=== PATIENT | male | born 1935 | race Caucasian/White ===

== ENCOUNTER 2019-01-15 14:08 | Inpatient (IN) | payer MEDICARE, OTHER ==
--- NOTE | 2019-01-15 14:20 | ED ---
Neurological HPI - HPI Summary HPI Summary: 83 year old M brought in by EMS from [facility] to [facility] complains of disorientation, confusion, weakness, and mild headache since this morning. Patient states that yesterday evening, he smoked a pipe and went to bed at 19: 00 and was fine. Patient states that when he woke up at 00:00 today to use the bathroom, he noticed that he felt disoriented. Patient states he had no difficulty ambulating and went back to sleep. Patient states that he woke up at 06:30 today with a mild headache and dark vision which he didn't think much of so did his chores. He states he left his house at 09:00 to go to an appointment , felt disoriented and confused and was unsure where he was as he was driving his car. Patient states that as he was driving, he noticed that he was unable to see cars coming towards him until the cars were very close. Patient states he also wasn't able to see in his peripheral visual garay, described as having tunnel vision. Patient decided to go to [facility] to be evaluated. Patient states his visual changes have since resolved. Symptoms aggravated by nothing. Symptoms alleviated by nothing. Hx urinary incontinence with which he usually does not get strong sense to urinate. - History of Current Complaint Stated Complaint: STROKE PER NURSE Hx Obtained From: Patient Onset/Duration: Started hours ago, Still Present Timing: Constant Aggravating: Nothing Alleviating: Nothing - Allergy/Home Medications Allergies/Adverse Reactions: Allergies Allergy/AdvReac Type Severity Reaction Status Date / Time No Known Allergies Allergy Verified 01/15/19 14:17 PMH/Surg Hx/FS Hx/Imm Hx Cardiovascular History: Reports: Hx Atrial Fibrillation Sensory History: Reports: Hx Hearing Aid - BILATERAL Denies: Hx Contacts or Glasses Opthamlomology History: Denies: Hx Contacts or Glasses - Surgical History Surgery Procedure, Year, and Place: LEFT TOTAL HIP- 03/17- [facility] Hx Anesthesia Reactions: No - Family History Known Family History: Positive: Other - cataracts, arthritis, cancer - Social History Alcohol Use: Daily Alcohol Amount: A LITTLE WINE WITH MEALS Substance Use Type: Reports: None Hx Tobacco Use: Yes Smoking Status (MU): Light Every Day Tobacco Smoker Amount Used/How Often: 1-2 PIPES DAILY; 1-2 CIGARS DAILY- DOESN'T INHALE -X 5 YEARS Review of Systems Positive: Other - visual changes Neurological: Other - disorientation, confusion Positive: Headache, Weakness All Other Systems Reviewed And Are Negative: Yes Physical Exam - Summary Physical Exam Summary: Appearance: The patient is well-nourished in no acute distress and in no acute pain. Skin: The skin is warm and dry, and skin color reflects adequate perfusion. HEENT: The head is normocephalic and atraumatic. The pupils are equal and reactive. The conjunctivae are clear and without drainage. Nares are patent and without drainage. Mouth reveals moist mucous membranes, and the throat is without erythema and exudate. The external ears are intact. The ear canals are patent and without drainage. The tympanic membranes are intact. Neck: The neck is supple with full range of motion and non-tender. There are no carotid bruits. There is no neck vein distension. Respiratory: Chest is non-tender. Lungs are clear to auscultation and breath sounds are symmetrical and equal. Cardiovascular: Heart is regular rate and rhythm. There is no murmur or rub auscultated. There is no peripheral edema and pulses are symmetrical and equal. Abdomen: The abdomen is soft and non-tender. There are normal bowel sounds heard in all four quadrants and there is no organomegaly palpated. Musculoskeletal: There is no back tenderness noted. Extremities are non-tender with full range of motion. There is good capillary refill. There is no peripheral edema or calf tenderness elicited. Neurological: Patient is alert and oriented to person, place and time. The patient has symmetrical motor strength in all four extremities. Cranial nerves are grossly intact. Deep tendon reflexes are symmetrical and equal in all four extremities. Psychiatric: The patient has an appropriate affect and does not exhibit any anxiety or depression. NIH: 0 Triage Information Reviewed: Yes Vital Signs Reviewed: Yes Procedures - Sedation Patient Received Moderate/Deep Sedation with Procedure: No National Institutes Of Health - NIH Scale Level of Consciousness: Alert/Keenly Responsive Ask Patient the Month and His/Her Age: Both Correct Ask Pt to Open/Close Eyes and Auto Cleaner/Release Non-Paretic Hand: Both Correctly Best Gaze (Only Horizontal Eye Movement): Normal Visual Field Testing: No Visual Loss Facial Paresis-Pt to Smile & Close Eyes or Grimace Symmetry: Normal/Symmetrical Motor Function - Right Arm: No Drift-Holds 10 Seconds Motor Function - Left Arm: No Drift-Holds 10 Seconds Motor Function - Right Leg: No Drift-Holds 10 Seconds Motor Function - Left Leg: No Drift-Holds 10 Seconds Limb Ataxia-Must be out of Proportion to Weakness Present: Absent Sensory (Use Pinprick to Test Arms/Legs/Trunk/Face): Normal Best Language (Describe Picture, Name Items): No Aphasia Dysarthria (Read Several Words): Normal Extinction and Inattention: No Abnormality Total Score: 0 Course/Dx - Course Course Of Treatment: I spoke with Dr. Lee. Mr. Rosas's GFR is 36 and since no intervention would be warranted if we did find a clot, we will hold the CTA. I spoke with Dr. Fox for admission. I originally ordered an ASA as there was no documentation of it in the chart but the patient and the EMS run sheet both say he got it in [place] so I held it. - Diagnoses Provider Diagnoses: CVA (cerebral vascular accident) - Physician Notifications Discussed Care Of Patient With: Seth Lee Time Discussed With Above Provider: 14:20 Instructed by Provider To: Other - Dr. Lee, neurology, recommends giving labetalol 20 mg and aspirin 325 mg. He recommends admission to the hospitalist. Dr. Fox, hospitalist, agrees to admit patient at 15:27. Discharge ED - Sign-Out/Discharge Documenting (check all that apply): Patient Departure - Admit - Discharge Plan Condition: Stable Disposition: ADMITTED TO [facility] - Billing Disposition and Condition Condition: STABLE Disposition: Admitted to [facility] - Attestation Statements Document Initiated by Deep: Yes Documenting Scribe: Amparo Delgado Provider For Whom Deep is Documenting (Include Credential): Kamari Tate MD Scribe Attestation: I, Amparo Delgado, scribed for Kamari Tate MD on 01/15/19 at 1806. Scribe Documentation Reviewed: Yes Provider Attestation: The documentation as recorded by the Amparo william accurately reflects the service I personally performed and the decisions made by me, Kamari Tate MD Status of Scribe Document: Viewed
[2019-01-15] MEDS ORDERED: Labetalol IV* 5 MG/ML 20 ML VIAL IV PUSH ONE (14:22)
[2019-01-15] MEDS ORDERED: Aspirin TAB* 325 MG PO ONE (14:23)
--- OUTSIDE RECORDS SUMMARY | 2019-01-15 15:13 | XMS REPORT | Continuity of Care Document ---
:1935 External Reference #:[id number] Author Name Concetta Singh O.D. Address [address] [place] [address] Care Team Providers Name Role Phone Ramos Najera D.O. - Internal Medicine Care Team Information Catcher Plug [phone] Problems Active Problems Provider Date Tear film insufficiency Sanjana Page O.D. Onset: 08/13/2015 Ocular hypertension Sanjana Page O.D. Onset: 08/13/2015 Presbyopia Sanjana Page O.D. Onset: 08/13/2015 Presence of intraocular lens Sanjana Page O.D. Onset: 08/13/2015 Vitreous degeneration Sanjana Page O.D. Onset: 08/13/2015 Vitreous opacities Sanjana Page O.D. 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 Onset: 2016 degeneration Myopia Concetta Singh O.D. Onset: 08/25/2017 Regular astigmatism Concetta Singh O.D. Onset: 08/25/2017 Social History Type Date Description Comments Sex Unknown ETOH Use Occasionally consumes alcohol Tobacco Use Start: Unknown Patient is a current smoker, smokes every day Recreational Drug Use Denies Drug Use Smoking Status Reviewed: 12/17/18 Patient is a current smoker, smokes every day Allergies, Adverse Reactions, Alerts Description No Known Drug Allergies Medications Active Medications SIG Qnty Indications Ordering Date Provider Refresh Optive 1 drop both eyes 30ml H40.053 Concetta Singh, 06/09/2017 0.5-0.9% 3-4 times a day O.D. Solution Lumigan Instill 1 Drop 7.5units Concetta Dorita Singh, 08/13/2015 0.01% Solution In Both Eyes O.D. Every Night Essential One Daily Unknown Multivitamin Tablets Nattokinase Unknown 100mg Capsules [place] Unknown 150mg Capsules Immunizations Description No Information Available Vital Signs Date Vital Result Comment 08/13/2015 10:20am BP Systolic 131 mmHg wrist cuff R arm sit BP Diastolic 93 mmHg wrist cuff R arm sit Results Description No Information Available Procedures Description No Information Available Medical Devices Description No Information Available Encounters Description No Information Available Assessments Date Code Description Provider 12/17/2018 H40.053 Ocular hypertension, bilateral Concetta Singh O.D. 12/17/2018 H43.813 Vitreous degeneration, bilateral Concetta Singh O.D. 12/17/2018 Z96.1 Presence of intraocular lens Concetta Singh O.D. Plan of Treatment 12/17/2018 - Concetta Singh O.D.H40.053 Ocular hypertension, bilateralComments: Smoking can increase the risk of developing or worsening any eye related disease , as well as affect your overall health. If you are a smoker, we strongly recommend that you quit.If you are not a smoker, we strongly recommend that you do not start. .Your eye pressure is within an acceptable range, and your testing does not show any Glaucoma related changes at this time. Please continue your treatment.Follow up:1 year oct nerve/VF 30-2H43.813 Vitreous degeneration, bilateralComments:You have a Posterior Vitreous Detachment. If you have any changes in your floaters or flashing lights, please contact this office.Z96.1 Presence of intraocular lensComments:The artificial lens implants in both eyes appear to be stable at this time. Functional Status Description No Information Available Mental Status Description No Information Available Referrals Description No Information Available
[2019-01-15] MEDS ORDERED: Ondansetron INJ* 2 MG/ML VIAL IV PRN (17:55)
[2019-01-15] MEDS: Latanoprost 0.005%* 2.5 ml BTL BOTH EYES SCH ×2 (20:21→22:26)
[2019-01-15] MEDS: Atorvastatin* 40 MG TAB PO SCH (20:23)
--- NOTE | 2019-01-15 21:17 | HP ---
CC: Dr. Ricardo Najera; Dr. Seth Lee HISTORY AND PHYSICAL: DATE OF ADMISSION: 01/15/19 PRIMARY CARE PROVIDER: Dr. Ricardo Najera. CHIEF COMPLAINT: Stroke. The patient has been transferred from [facility] because of finding of a stroke. HISTORY OF PRESENT ILLNESS: This is an 83-year-old male with a history of atrial fibrillation, not on blood thinners by the recommendation of his naturopathic physician, who recommended herbal medication instead of anticoagulation. He presented to the emergency room at [place] because of visual deficits. The patient reports that he went to bed yesterday and kept on dozing on and off. He woke up at midnight, at which point he realized that he was feeling very disoriented and then he went back to sleep. He woke up at 6: 30 in the morning, that is when he noted that he is having some visual issues. He described it as things seemed darker than usual, and he was having trouble seeing in the peripheral region. He described it as a tunnel vision, and he also started to have dizzy spells described as a room spinning sensation. He then got ready. He felt very disoriented, but then recalled that he was supposed to go to [place] to volunteer at [employer]. So, he started driving to the [employer] and started to feel as if he was having visual issues, but continued to drive there and reached safely at the [employer] and he discussed what was going on with one of the members at the [employer] and was brought to the emergency room. He noted that when he woke up this morning, he was having mild headache. Throughout the entire episode, he did not have any facial droop or any facial numbness. No slurred speech. He did not have any motor deficit. No recent falls. No head injury. He was seen and evaluated at the [facility]. He underwent a CAT scan, which showed a large infarct at the right posterior cerebral artery distribution. They also discussed the case with the neurologist and subsequently the patient was given aspirin 325 mg and transferred to our emergency room. PAST MEDICAL HISTORY: Atrial fibrillation, glaucoma. PAST SURGICAL HISTORY: Cataract surgery. HOME MEDICATIONS: Include: 1. Lumigan 0.01% ophthalmic drop 1 drop both eyes at night. 2. Cardioprotective supplement. 3. Ginkgo biloba. 4. [place] Solid Extract. 5. Multivitamins. 6. Nattokinase. 7. Vitamin B12. ALLERGIES: No known drug allergies. FAMILY HISTORY: Mother: Breast cancer. SOCIAL HISTORY: The patient lives at home alone. He has cats that he loves to take care of. He smokes 2 to 3 pipes a day. He reports to me that he has a cocktail every 2 to 3 days; however, his daughter reports via the phone that he has a heavy alcohol use. REVIEW OF SYSTEMS: As per HPI, otherwise 11-point review of systems is done and is negative. PHYSICAL EXAMINATION GENERAL: This is a well-developed, well-nourished, elderly male, lying in the ER stretcher, in no acute distress. VITAL SIGNS: Blood pressure is 159/99, heart rate of 75, respiratory rate of 18 , temperature of 98.6, height is 6 feet 3 inches, weight is 185 pounds. HEENT: Pupils are equal, round, reactive to light. Atraumatic, normocephalic. There is a left-sided temporal visual deficit. There is no nystagmus. NECK: There is no carotid bruit. Neck is supple with range of motion intact, no JVD. LUNGS: There is no tachypnea, no use of accessory muscles. Lungs clear to auscultation with no wheezing, rales, or rhonchi. HEART: No chest wall tenderness. Irregularly irregular. No murmurs, rubs, or gallops. ABDOMEN: Bowel sounds are normoactive in all 4 quadrants. Abdomen is soft, nontender, nondistended. NEUROLOGICAL: Alert and oriented x3. There is left-sided temporal visual deficit. Pupils equal, round, and reactive to light. No nystagmus. His tongue is midline. There is no facial droop. Speech is clear and coherent. Motor is 5 /5 in all 4 extremities. There is no dysmetria, no dysdiadochokinesia. DIAGNOSTIC STUDIES/LAB DATA: Labs done at the [facility] revealed sodium of 139, potassium of 4.2, chloride of 101, bicarb of 24, BUN of 24, creatinine of 1.8. INR 1.03, PTT of 25.9. WBC of 4.41, hemoglobin of 12.3, hematocrit of 37.6, platelets of 207. CAT scan that was done at the [facility] showed a large infarct at the right posterior cerebral artery area. Additionally, telestroke Dr. Sven Kamara was contacted at the [facility], who did a tele neuro consult, and his recommendation at this point is, he would advise against tPA or consideration of neurovascular intervention due to the patient's CT already shows evidence of a large well- defined area of infarct. IMPRESSION AND PLAN: 1. Right-sided posterior cerebral artery territory stroke: This is suggestive of the patient's symptomatology of visual deficit as well as dizziness. I discussed the case with Dr. Lee. At this point, we will start the patient on Eliquis 2.5 mg b.i.d. based on his dosing. This will be initiated tomorrow. We will wait for 24 hours to start the anticoagulation pending repeat CT to check for evolution of the stroke. We will get an MRI as well as an MRA, carotid ultrasound, and echocardiogram to further evaluate the stroke and determine the exact cause. We will also check the patient's lipid profile, check A1c, as well as start the patient on atorvastatin 40 mg daily. The patient is placed n.p.o. pending bedside swallowing evaluation. 2. History of atrial fibrillation: This is a chronic issue for him; however, I discussed with the patient the pros and cons of starting anticoagulation. He is agreeable to start the anticoagulation. He understands that there is a risk of bleeding when starting anticoagulation. We will start the patient on Eliquis 2.5 mg b.i.d as described above pending repeat CT in the morning. 3. DVT prophylaxis: The patient will be started on Eliquis, so for tonight we will do SCD. [id number]/[facility] #: [id number] [facility]
[2019-01-15] MEDS ORDERED: Labetalol IV* 5 MG/ML 20 ML VIAL IV PUSH PRN (21:49)
[2019-01-15] MEDS: Acetaminophen TAB* 325 MG PO PRN (22:24)
[2019-01-16 05:26] LABS: ABS Eosinophils 0.1 10^3/ul (0-0.6); ABS Lymphocytes 0.8 10^3/ul (1.0-4.8); ABS Monocytes 0.6 10^3/ul (0-0.8); ABS Neutrophils 3.2 10^3/ul (1.5-7.7); Eosinophil % 1.2 %; Hematocrit 36 % (42-52); Hemoglobin 12.1 g/dL (14.0-18.0); Lymphocyte % 16.4 %; Mean Corpuscular HGB Conc 34 g/dL (31-36); Mean Corpuscular Hemoglobin 35 pg (27-31); Mean Corpuscular Volume 105 fL (80-94); Platelet Count 200 10^3/uL (150-450); Red Blood Count 3.45 10^6 /uL (4.18-5.48); Red Cell Distribution Width 12 % (10-15); White Blood Count 4.7 10^3/uL (3.5-10.8)
[2019-01-16 05:43] LABS: BUN/Creatinine Ratio 14.1 (8-20); Calcium 9.1 mg/dL (8.6-10.3); EGFR African American 46.9 (>60); EGFR Non-African American 38.8 (>60); Magnesium 1.9 mg/dL (1.9-2.7); Phosphorus 4.5 mg/dL (2.5-5.0); Potassium 4.2 mmol/L (3.5-5.0)
[2019-01-16 05:44] LABS: HDL Cholesterol 70.8 mg/dL
[2019-01-16] MEDS ORDERED: Apixaban* 2.5 MG TAB PO SCH (09:00)
--- NOTE | 2019-01-16 09:36 | PN ---
Subjective Date of Service: 01/16/19 Interval History: Continues to have issue with his left peripheral vision. Mild headache this morning. No chest pain, no shortness of breath Objective Active Medications: Acetaminophen (Tylenol Tab*) 650 mg PO Q6H PRN PRN Reason: MILD PAIN or TEMP > 100.4 Last Admin: 01/15/19 22:24 Dose: 650 mg Atorvastatin Calcium (Lipitor*) 40 mg PO 2100 JADEN Last Admin: 01/15/19 20:23 Dose: 40 mg Sodium Chloride (Ns 0.9% 1000 Ml) 1,000 mls @ 75 mls/hr IV PER RATE JADEN Latanoprost (Xalatan 0.005%*) 1 drop BOTH EYES BEDTIME JADEN; Protocol Last Admin: 01/15/19 22:26 Dose: Not Given Ondansetron HCl (Zofran Inj*) 4 mg IV Q6H PRN PRN Reason: NAUSEA Vital Signs - 8 hr 01/16/19 03:46 Temperature 98.4 F Pulse Rate 75 Respiratory 20 Rate Blood Pressure 141/90 (mmHg) O2 Sat by Pulse 99 Oximetry Oxygen Devices in Use Now: None Appearance: Sitting on bed, eating breakfast, not in distress Eyes: PERRLA Ears/Nose/Mouth/Throat: Mucous Membranes Moist Respiratory: Symmetrical Chest Expansion and Respiratory Effort, Clear to Auscultation Cardiovascular: No Edema, - - irregularly irregular. Tele reveiwed: shows atrial fibrillation Abdominal: NL Sounds; No Tenderness; No Distention, No Hepatosplenomegaly Neurological: Alert and Oriented x 3, NL Sensation, NL Gait, - - left peripheral vision diminished, motor 5/5 all 4 extremities, tongue is midline, speech is clear. no facial droop. Result Diagrams: 01/16/19 05:11 01/16/19 05:11 Assess/Plan/Problems-Billing Assessment: - Patient Problems (1) Acute right [employer] stroke Current Visit: Yes Status: Acute Code(s): I63.531 - CEREB INFRC D/T UNSP OCCLS OR STENOS OF RIGHT POST CEREB ART SNOMED Code(s): 107070385 Comment: Right [employer] stroke- acute/subacute- seen on CT scan done 01/15 in [facility]. Was given aspirin 325mg on 01/15. Patient is having atrial fibrillation, will get repeat CT now to check for possible evolution and check for any hemorrhagic component, neuro consulted. LDL < 70, A1c at goal. continue with statin for now. echo, carotid, MRI pending. (2) Atrial fibrillation Current Visit: Yes Status: Acute Code(s): I48.91 - UNSPECIFIED ATRIAL FIBRILLATION SNOMED Code(s): 83714676 Comment: rate controlled will eventually need anticoagulation, will check repeat CT, will d/w neurology regarding timing as there is a risk of possible hemorrhagic conversion. (3) JESUS (acute kidney injury) Current Visit: Yes Status: Acute Code(s): N17.9 - ACUTE KIDNEY FAILURE, UNSPECIFIED SNOMED Code(s): 25412558 Comment: JESUS vs CKD will give IV fluids repeat BMP tomorrow. (4) DVT (deep venous thrombosis) Current Visit: Yes Status: Acute Code(s): I82.409 - ACUTE EMBOLISM AND THOMBOS UNSP DEEP VN UNSP LOWER EXTREMITY SNOMED Code(s): 858633463 Comment: SCD repeat CT pending to check for evolution vs rule out hemorrhagic conversion of the stroke. Status and Disposition: inpatient status, pending work up.
[2019-01-16] MEDS: Acetaminophen TAB* 325 MG PO PRN ×2 (10:55→20:06)
--- NOTE | 2019-01-16 11:48 | PN ---
Hospitalist Progress Note Date of Service: 01/16/19 CT results reviewed[address] 1. [address] head shows a component of hemorrhage within the area of stroke: discussed in detail with Dr. Lee, at this point hold off on anticoagulation, patient has an MRI for tomorrow, MRI will help determine the timeline on when to start anticoagulation. 2. 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 Trinidad, she will evaluate the patient. Has recommended that this would be amenable for CT guided biopsy. Will need to discuss with IR as to when to get the biopsy done. This could be the optimal time as we have not started anticoagulation yet. 3. CT abdomen: revealed marked hydronephrosis b/l kidneys with markedly distended urinary gallbladder and enlarged prostate. Urinary cather ordered. Discussed with urologist, Dr. Wu- he will see patient as consult. Recommended placing garcia catheter and measuring urine output. Discussed with patient is detail regarding the findings, his concerns and questions addressed. discussed with Dr. Lee as well. okay to give lovenox subQ for DVT prophylaxis.
[2019-01-16] MEDS: Enoxaparin(*) 30 MG/0.3 ML SYR SUBCUT SCH (13:59)
[2019-01-16 14:01] LABS: Urine Appearance Clear; Urine Bilirubin Negative (Negative); Urine Blood Negative (Negative); Urine Color Yellow; Urine Glucose Negative (Negative); Urine Ketones Negative (Negative); Urine Nitrite Negative (Negative); Urine Protein Negative (Negative); Urine Specific Gravity 1.008 (1.010-1.030); Urine Urobilinogen Negative (Negative)
--- NOTE | 2019-01-16 14:17 | CONS ---
NEUROLOGY CONSULTATION: DATE OF CONSULT: 01/16/19 HOSPITALIST: Alyssa Nuñez MD PRIMARY CARE PHYSICIAN: Dr. Ricardo Najera LOCATION: He is inpatient, in room 442. CHIEF COMPLAINT: Visual deficits. HISTORY OF PRESENT ILLNESS: Catarino Rosas is a very pleasant 83-year-old right- handed man who woke up at the night before last in the middle of the night feeling confused. He had somewhat of a restless sleep, but went back to sleep at that point nevertheless. That was approximately midnight. He got up at about 6 or 6:30 in the morning, which is his usual time of awakening. He realized there was something not right with his vision, but he could not put his finger on it. Things just seem darker. He felt a little bit disoriented. 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 He got in the car to drive to a volunteer job that he was going to do. He became disoriented in space and missed his turn. He ended up some distance from where he was intending to go. He finally got to his destination late yesterday morning and discussed his difficulties with the folks there. He was then either brought by his friends or otherwise arrived at [facility]. The [facility] made a CAT scan of the brain, which was interpreted showing infarct in the right occipital lobe. His last known well was when he went to bed the night before, so it was over 15 hours or so by that time. He was apparently given aspirin 325 mg in the [facility]. I was called for possible transfer. They did not have CT angiogram capabilities and due to the length of time that he was last known well in the report of a clearly discerned acute infarct in his right occipital lobe we accepted him for transfer here. He realized subsequently that he could not see to his left side. In retrospect , he remembers driving and he could not see the cars in the left lenore until the last minute. He realizes since yesterday that he cannot see very far to the left of his midline. He has had a dull headache since he woke up in the middle of the night, the night before last. He responds to Tylenol. He usually does not get headaches. He has not noticed any change in sensation, strength, nor any other new neurological symptoms. He has some chronic numbness in his distal left lower extremity that he attributes to the sequela of a bad skin infection that he had many years ago. He has been known to have atrial fibrillation for several years. He has declined anticoagulation and is worked with a homeopath. He does not take aspirin or any other medications on a regular basis. REVIEW OF SYSTEMS: Negative for faints, seizures, or prior episodes of visual loss. He has had incontinence for at least 6 months or more. He wears a diaper at night. During the day he can void perhaps "4 to 6 ounces" at a time. He has noted a protuberant abdomen for several months. He has not had any abdominal pain or back pain or flank pain. He denies any shortness of breath or chest pain. He does not smoke cigarettes, but smokes a pipe 2 or sometimes 3 times per day. He says he does not inhale. He says he used to smoke cigars, but quit about 6 months ago. His weight has been stable after having lost about 8 pounds over the last year. He is at 180 pounds, which he feels is his ideal weight. He has not had any chills, fevers, or sweats. Additional review of systems he is a [place] vet. 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 He drinks at least 3 to 4 glasses of wine per day. He lives alone. 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 He does have a history of glaucoma. He has hearing loss he attributes to his days in the . FAMILY HISTORY: Notable for his mother passing with breast cancer. SOCIAL HISTORY: He lives alone. Tobacco and alcohol use is reported above. He does drive. PHYSICAL EXAM: On exam, he is well nourished and well hydrated. Temperature is 97.7 and he has been afebrile throughout his hospital stay here. His blood pressure is running typically as low as 140 systolic up to 180 with diastolics running generally from 100 to 120. Her respiratory rate is 19 and oxygen saturations 100% on room air. Heart tones are irregular, but I do not hear any murmurs. There are no cervical bruits. Neck is supple. Oral mucosa is moist and atraumatic. Lungs are clear bilaterally. He has a protuberant abdomen with a palpable enlarged bladder. He has some chronic skin changes in his left foreleg and some chronic fungal changes in his toes bilaterally. Neurological exam pupils are small at 3 mm reacting to light to 2 mm. Eye movements are normal. Funduscopic exam reveals arteriolar tortuosity and silver wiring. Visual garay are notable for dense left homonymous hemianopsia. Facial musculature is symmetric. He is a bit hard of hearing bilaterally. Facial sensation is intact and symmetric to light touch and pin discrimination. Palate and tongue appear normal and speech is clear without dysarthria. Neck strength is intact. Motor exam revealed some distal atrophy and feet muscles but otherwise normal muscle tone and strength proximally and distally in all limbs. There is no drift of any limb. There is no sustention, rest, or action tremor. Finger taps are normal in the hands. Sensory exam is notable for some distal loss to light touch in the fingers and in the feet to above the ankles. There is decreased pin discrimination in the left foreleg relative to the right. There is loss of vibratory sense in the distal lower extremities. Reflexes are trace at biceps, brachioradialis, knees. Reflexes are absent at the ankles. Plantar responses are flexor bilaterally. I did not attempt to ambulate him. He is alert and oriented and a good detailed historian. Memory is intact and language is fluent. He has adequate attention, concentration, and fund of knowledge. DIAGNOSTIC STUDIES/LAB DATA: Includes a CT of the brain which reveals a right posterior cerebral artery infarction. There is a small amount of petechial hemorrhage in the scan done this morning. Compared to the scan done at [facility] yesterday, which I reviewed the images of also, there is a more mass effect and the petechial hemorrhage is new. A CT scan of the chest, abdomen, and pelvis reveals a massively enlarged bladder and bilateral severe hydronephrosis. Ureters are involved as well. There is a mass, which appears spiculated in the left lung apex. Additional laboratory data is notable for CBC with an MCV of 105, hemoglobin 12.1, hematocrit 36%. White blood cell count and platelet count are normal. Chemistries are notable for creatinine of 1.70, creatinine on 10/14/18 was 1.28 and was normal back in April 2018. His glucose this morning is 106. The rest of his chemistry profile is unremarkable. His cholesterol this morning is 135, LDL 54. There is no urinalysis yet or coagulation parameters. IMPRESSION: Impression is that of a right posterior cerebral artery infarction which appears to involve the entire posterior cerebral artery. This includes the posterior choroidal branch. There is some petechial hemorrhage and some mass- effect compared to yesterday. The most likely mechanism is cardioembolic. He has not had a CT angiogram because of his renal function. He has a carotid ultrasound ordered. Recommend canceling the carotid ultrasound and doing an MR angiogram of the brain without contrast when he has his MRI of the brain done tomorrow. His stroke is in a posterior circulation and some really too concerned about what his carotid arteries look like. In regards to anticoagulation, I would hold off until further imaging tomorrow. Eliquis dosed according to his renal function would be the recommendation in a patient with a cardioembolic stroke. If his MRI scan does not suggest significant progression of the small petechial hemorrhages, I think he would be probably anticoagulated. 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 I know Dr. Bruce of Urology has been consulted and a Obregon catheter is about to be placed. If he is going to need a procedure done regarding the lung mass that will need to be taken into account and determining timing of anticoagulation. Generally speaking the sooner he can be anticoagulated the better and if the stroke was the only consideration, the risk of recurrent ischemic stroke outweighs the risk of hemorrhagic transformation if there is only a small amount of petechial blood. Dr. Yogi Barcenas will be coming on neurology service tomorrow and I will sign off Mr. Rosas's case to him. I have discussed my impression with Dr. Nuñez. [id number]/[facility] #: [id number] [facility]ITALBrown
--- NOTE | 2019-01-16 14:43 | ECHO ---
*[facility]* [place] [address] Fax #: [phone] Transthoracic Echocardiogram Patient: Catarino Weathers : 1935 Study Date: 01/16/2019 Age: 83 Gender: M HR: 80 bpm Height: 75 in /190.5 cm BSA: 2.12 m^2 Weight: 184.6 lb /83.9 kg BMI: 23.1 kg/m^2 *Deep Submergence Vehicle Crewmember: * Loreto Rivas [facility] *Referring Physician: * Alyssa Nuñez *Reading Physician: * Carmine Ruiz MD Indications: CVA. History: Atrial fibrillation. Risk factors: Current tobacco use. Conclusions Summary: - Left ventricle: Systolic function is at the lower limits of normal. The estimated ejection fraction is 50-55%. Wall motion is normal; there are no regional wall motion abnormalities. - Right ventricle: Systolic function is normal. - Atrial septum: A PFO is not demonstrated by color Doppler. Bubble study was non-diagnostic due to patient IV and technique. - Mitral valve: There is no evidence of stenosis. There is mild to moderate regurgitation. - Aortic valve: There is no evidence of stenosis. There is trace regurgitation. - Tricuspid valve: There is moderate-severe regurgitation. - Pericardium, extracardiac: There is no significant pericardial effusion. - Pulmonary arteries: Systolic pressure is mildly to moderately increased. The peak pressure during systole by Doppler is 43.0 mm Hg. - Study data: No prior study is available for comparison. Study data: Transthoracic echocardiogram. Procedure: Transthoracic echocardiography was performed. Image quality was good. A bubble study was performed. Complete 2D, spectral Doppler, and color flow Doppler. Location: Bedside. Patient status: Inpatient. Patient room number: 442. No prior study is available for comparison. Rhythm: Atrial fibrillation. Findings Left ventricle: The cavity size is normal. Wall thickness is normal. Systolic function is at the lower limits of normal. The estimated ejection fraction is 50-55%. Wall motion is normal; there are no regional wall motion abnormalities. Left ventricular diastolic function parameters are indeterminate. Right ventricle: The cavity size is normal. Systolic function is normal. Left atrium: The atrium is severely dilated. Right atrium: The atrium is severely dilated. Atrial septum: A PFO is not demonstrated by color Doppler. Bubble study was non-diagnostic due to patient IV and technique. Mitral valve: The Mitral valve annulus appears calcified. The leaflets are normal thickness. There is no evidence of stenosis. There is mild to moderate regurgitation. Aortic valve: The valve is trileaflet. The leaflets are normal thickness. There is no evidence of stenosis. There is trace regurgitation. Tricuspid valve: The leaflets are normal thickness. There is no evidence of stenosis. There is moderate-severe regurgitation. Pulmonic valve: The leaflets are normal thickness. There is no evidence of stenosis. There is trace regurgitation. Aorta: Aortic root: The aortic root is mildly dilated. Ascending aorta: The ascending aorta is appears normal. Aortic arch: The aortic arch is appears normal. Pericardium: There is no significant pericardial effusion. Pulmonary arteries: The main pulmonary artery is normal-sized. Systolic pressure is mildly to moderately increased. Systemic veins: Inferior vena cava: The vessel is dilated. There is (>= 50%) respiratory change in the IVC dimension. Measurements Left ventricle Value Ref Aortic valve continued Value Ref GUDELIA, LAX 5.3 cm 4.2 - 5.8 Peak v, S 0.8 m/sec ----- ESD, LAX 3.9 cm 2.5 - 4.0 Peak grad, S 3.0 mm Hg ----- FS, LAX 26 % 25 - 43 PW, ED, LAX 1.0 cm 0.6 - 1.0 Mitral valve Value Ref EF (L) 50 % 52 - 72 Peak E 0.87 m/sec ----- E', lat brain, TDI 12.9 cm/sec >=10.0 Decel time 157 ms - ---- E/e', lat brain, 7 Peak grad, D 3.0 mm Hg ---- - TDI ERO, PISA 0.08 cm^2 ----- E', med rbain, TDI 9.5 cm/sec >=7.0 MR vol, PISA 14 ml - ---- E/e', med brain, 9 TDI Pulmonic valve Value Ref E', avg, TDI 11.2 cm/sec Peak v, S 0.61 m/sec ---- - E/e', avg, TDI 8 <=14 Peak grad, S 1.0 mm Hg - ---- LVOT Value Ref Tricuspid valve Value Ref Peak carlita, S 0.66 m/sec TR peak v (H) 3 m/sec <=2.8 Peak RV-RA grad, S 36 mm Hg ----- Ventricular septum Value Ref IVS, ED 1.0 cm 0.6 - 1.0 Aortic root Value Ref Root diam 3.5 cm <4.2 Right ventricle Value Ref GUDELIA, LAX 2.7 cm Ascending aorta Value Ref GUDELIA minor ax, A4C 3.3 cm 1.9 - 3.5 AAo AP diam, S 3.4 cm ----- mid Pressure, S 44 mm Hg Aortic arch Value Ref Arch diam 3.5 cm ----- Left atrium Value Ref AP dim, ES (H) 5.20 cm 3.00 - Decending aorta Value Ref 4.00 Ashok peak carlita 0.52 m/sec ----- ML dim, A4C 5.9 cm SI dim, A4C 6.9 cm Pulmonary artery Value Ref Vol/bsa, ES, A/L (H) 93 ml/m^2 16 - 34 Pressure, S 43.0 mm Hg ----- Right atrium Value Ref Inferior vena cava Value Ref SI dim, ES (H) 7.4 cm 3.4 - 5.3 Diam 3.0 cm ----- ML dim, ES, A4C (H) 5.0 cm 2.6 - 4.4 Estimated RAP 8 mm Hg Aortic valve Value Ref Brain diam, ED 2.0 cm Legend: (L) and (H) lawrence values outside specified reference range. Prepared and electronically signed by Carmine Ruiz MD 01/16/2019 14:43
--- NOTE | 2019-01-16 16:33 | PN ---
Hospitalist Progress Note Date of Service: 01/16/19 Will allow for permissive hypertension. If SBP > 160 consistently will need antihypertensives- given urinary issues- would avoid diuretics at this point, would consider amlodipine, if no JESUS- could consider RONIT/ARB.
--- NOTE | 2019-01-16 17:25 | CONS ---
PULMONARY CONSULTATION REPORT: DATE OF CONSULT: 01/16/19 CONSULTATION REQUESTED BY: Dr. Nuñez. REASON FOR CONSULT: Evaluation of abnormal CT chest. HISTORY OF PRESENT ILLNESS: The patient is a 83-year-old male with history of atrial fibrillation not on anticoagulation transferred from [facility] for evaluation of CVA. The patient presented with disorientation, visual changes, dizzy spell, tunneled vision. The patient had a CT scan of the brain that showed large infarct in the right posterior cerebral artery area. He had followup CT of the brain repeated this morning, which showed hypodense area in the right occipital lobe with mass-effect on the atria of the right lateral ventricle with small focus of hyperdensity might be representing hemorrhage. The patient was transferred to [facility] for further management of the CVA. The patient had chest x-ray done at [facility] that showed abnormality in the left lung for which she underwent dedicated CT. I personally reviewed the CT scan images and with the patient today - patient with soft tissue density in the left upper lobe measuring 2.8 x 1.9 cm. No significant mediastinal or hilar adenopathy was noted. No significant emphysematous changes were noted. The patient also was noted to have a calcified granuloma in left upper lobe measuring 10 mm. The patient also was noted to have marked hydronephrosis of both kidneys. Pulmonary consultation was requested for abnormal CT chest. The patient is a former cigarette smoker and pipe smoker. He quit for a few years and then resumed smoking pipe. Denies shortness of breath or chronic cough. Denies recurrent bronchitis. He has not been diagnosed with COPD in the past. History of breast cancer in mother, denies lung cancer history. PAST MEDICAL HISTORY: Atrial fibrillation, glaucoma. PAST SURGICAL HISTORY: Cataract surgery. MEDICATIONS AT HOME: 1. Lumigan 2. Cardioprotective supplement 3. Ginkgo biloba. 4. Cummings Solid Extract. 5. Multivitamin 6. Natural kinase 7. Vitamin B12. ALLERGIES: No known drug allergies. FAMILY HISTORY: Mother with breast cancer. SOCIAL HISTORY: The patient lives at home. He is alone at home. He smokes 2 to 3 pipes a day, was smoking cigarettes in the past. He drinks a cocktail every 2 to 3 days. No drug abuse. REVIEW OF SYSTEMS: All 12 systems were reviewed and as per HPI. PHYSICAL EXAM: The patient in bed in no apparent distress. Vital Signs: Temperature 97.7, pulse 73 beats per minute, respiratory rate 17 per min, O2 sat 100% on room, blood pressure 155/94. HEENT: Pupils equal and reactive to light, mucous membranes moist. Lungs: Good air entry bilaterally. No crackles or wheezes on auscultation. Cardiovascular: S1, S2 present irregular. Abdomen: Soft, nontender, nondistended, bowel sounds present. Extremities: Normal range of motion. Neuro: Alert, awake, and oriented x3. Decreased left peripheral vision. Motor 5 x 5 in all extremities. Tongue is midline. Speech is clear next. Skin: No rash or bruits. DIAGNOSTIC STUDIES/LAB DATA: WBC count 4.7, hemoglobin 12.1, hematocrit 36, platelet count 200. Sodium 138, potassium 4.2, chloride 108, bicarb 23, BUN 24 , creatinine 1.70, PSA elevated at 9.5. CT of the chest as described above in HPI. IMPRESSION RECOMMENDATIONS: 83-year-old male smoker with occipital CVA with possible hemorrhagic component, history of atrial fibrillation not been on anticoagulation. The patient with incidental finding of lung mass about 2 cm in the left upper lobe. Given smoking history and age concerning for malignancy. Given the size and location of the mass, it is more amenable to CT- guided biopsy. I would recommend contacting Interventional Radiology regarding CT-guided biopsy. The patient currently not started on anticoagulation yet due to the hemorrhagic component. He does not have significant emphysematous changes, I do not think he is at increased risk for pneumothorax from a CT-guided biopsy than average risk. He does not need any treatment for COPD. He does not report any nicotine withdrawal or does not need treatment for that either. Thank you for allowing me to participate in the care of your patient. Further recommendations pending biopsy results. Above was discussed with the patient and also with Dr. Nuñez. [id number]/[facility] #: [id number] MAIRA
[2019-01-16] MEDS: Latanoprost 0.005%* 2.5 ml BTL BOTH EYES SCH (20:00)
[2019-01-16] MEDS: Tamsulosin CAP* 0.4 MG PO SCH (20:01)
[2019-01-16] MEDS: Atorvastatin* 40 MG TAB PO SCH (20:01)
[2019-01-17] MEDS: Acetaminophen TAB* 325 MG PO PRN ×2 (05:05→15:41)
[2019-01-17] MEDS: NS 0.9% 1000 ML** 1,000 ML IV SCH ×2 (05:06→21:38)
[2019-01-17 05:48] LABS: ABS Eosinophils 0.1 10^3/ul (0-0.6); ABS Lymphocytes 0.7 10^3/ul (1.0-4.8); ABS Monocytes 0.7 10^3/ul (0-0.8); ABS Neutrophils 4.1 10^3/ul (1.5-7.7); Eosinophil % 2.3 %; Hematocrit 35 % (42-52); Hemoglobin 11.8 g/dL (14.0-18.0); Lymphocyte % 12.5 %; Mean Corpuscular HGB Conc 34 g/dL (31-36); Mean Corpuscular Hemoglobin 35 pg (27-31); Mean Corpuscular Volume 105 fL (80-94); Mean Platelet Volume 7.1 fL (7.4-10.4); Nucleated Red Blood Cells % 0.1; Platelet Count 177 10^3/uL (150-450); Red Blood Count 3.34 10^6 /uL (4.18-5.48); Red Cell Distribution Width 12 % (10-15); White Blood Count 5.7 10^3/uL (3.5-10.8)
[2019-01-17 05:52] LABS: Activated Partial Thrombo Time 31.3 seconds (26.0-38.0); INR 1.03 (0.82-1.09)
[2019-01-17 06:06] LABS: Albumin 3.4 g/dL (3.2-5.2); Albumin/Globulin Ratio 1.5 (1-3); BUN/Creatinine Ratio 14.6 (8-20); Calcium 8.5 mg/dL (8.6-10.3); EGFR African American 42.6 (>60); EGFR Non-African American 35.2 (>60); Globulin 2.3 g/dL (2-4); Magnesium 1.7 mg/dL (1.9-2.7); Phosphorus 2.9 mg/dL (2.5-5.0); Potassium 4.1 mmol/L (3.5-5.0); Total Bilirubin 0.7 mg/dL (0.2-1.0); Total Protein 5.7 g/dL (6.4-8.9)
[2019-01-17] MEDS: Enoxaparin(*) 30 MG/0.3 ML SYR SUBCUT SCH (12:08)
--- NOTE | 2019-01-17 12:16 | PN ---
Subjective Date of Service: 01/17/19 Interval History: Pt continues to have L lateral visual field deficit, but believes that this has improved since admission. He c/o headache earlier, relieved with Tylenol. He c /o bladder discomfort. He denies weakness, flank pain, cough. No other complaints today. Objective Active Medications: Acetaminophen (Tylenol Tab*) 650 mg PO Q6H PRN Atorvastatin Calcium (Lipitor*) 40 mg PO 2100 JADEN Enoxaparin Sodium (Lovenox(*)) 30 mg SUBCUT Q24H JADEN Sodium Chloride (Ns 0.9% 1000 Ml) 1,000 mls @ 75 mls/hr IV PER RATE JADEN Latanoprost (Xalatan 0.005%*) 1 drop BOTH EYES BEDTIME JADEN; Protocol Ondansetron HCl (Zofran Inj*) 4 mg IV Q6H PRN Tamsulosin HCl (Flomax Cap*) 0.4 mg PO BEDTIME JADEN Vital Signs: Temp Pulse Resp BP Pulse Ox 98.9 F 81 18 134/86 99 01/17/19 07:15 01/17/19 07:15 01/17/19 08:00 01/17/19 07:15 01/17/19 07:15 Oxygen Devices in Use Now: None Appearance: Pt is sitting in bed with HOB elevated. He appears to be comfortable, in no acute distress. Eyes: No Scleral Icterus, PERRLA Ears/Nose/Mouth/Throat: NL Teeth, Lips, Gums, Clear Oropharnyx, Mucous Membranes Moist, - - Face symmetrical Neck: NL Appearance and Movements; NL JVP, Trachea Midline Respiratory: Symmetrical Chest Expansion and Respiratory Effort, Clear to Auscultation Cardiovascular: NL Sounds; No Murmurs; No JVD, No Edema, - - Irregular Abdominal: NL Sounds; No Tenderness; No Distention, No Hepatosplenomegaly Extremities: No Edema, No Clubbing, Cyanosis Neurological: Alert and Oriented x 3, NL Sensation, NL Muscle Strength and Tone , - - Pt with L lateral visual field deficit Result Diagrams: 01/17/19 04:59 01/17/19 04:59 Assess/Plan/Problems-Billing Assessment: 83yom PMHx AF without AC, HLD, glaucoma presents with dizziness, visual deficit found to have R posterior CVA on CT, MRI. - Patient Problems (1) Acute right [employer] stroke Comment: -Right [employer] stroke with hemorrhagic component- acute/subacute- seen on CT scan done 01/15 in [facility] -Was given aspirin 325mg on 01/15 -Neuro consulted -LDL < 70, A1c at goal -Echo with no evidence of PFO -MRI/MRA head: subacute R [employer] infarct -Neuro recommends asa 81 x10 days then repeat head CT 01/25; if no progression or enlargement, may start Eliquis 2.5 BID (renal dosing) (2) Lung nodule Comment: -2.8 x 1.9 cm RAMIREZ lung nodule noted on CT chest -Pulm consulted and recommend biopsy -IR consulted; pending biopsy vs outpatient follow up (3) Bilateral hydronephrosis Comment: -B/l hydronephrosis, enlarged prostate on CT abd/pel; pt with hematuria -Urology consulted -PSA 9.854 -Flomax ordered (4) Atrial fibrillation Comment: -rate controlled -Plan for CT head 01/25- if no progression/enlargement, can start Eliquis as above (5) DVT prophylaxis Comment: -Lovenox (6) Full code status Status and Disposition: Inpatient. Discharge when medically stable.
[2019-01-17] MEDS ORDERED: Cyanocobalamin INJ * 1,000 MCG/ML VIAL 1 ML VIAL IM ONE (14:49)
--- NOTE | 2019-01-17 15:14 | PN ---
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 Interval History: He feels that his vision is improving but he continues to have major deficit. He has mild, constant, 2/10 headache in the posterior head region. He denied any photo or phonophobia. He denied any double vision. He denied any slurred speech. He is aware of his inability to operate a vehicle following this stroke. He is interested in going to rehabilitation after discharge. MRI brain without contrast completed 01/17/2019: Subacute right GAS SCRUBBER OPERATOR territory infarct is redemonstrated with petechial blood products and only mild local mass effect. There is no herniation. There is relative sparing of the right thalamus. intracranial atherosclerotic disease with no evidence of LVO. Mild chronic small vessel ischemic disease. TTE: no PFO. EF: 55-60%. Review of Systems: Denied CP, SOB, or palpitations. Objective Active Medications: Acetaminophen (Tylenol Tab*) 650 mg PO Q6H PRN PRN Reason: MILD PAIN or TEMP > 100.4 Last Admin: 01/17/19 05:05 Dose: 650 mg Aspirin (Aspirin Ec Tab*) 81 mg PO DAILY [facility] Atorvastatin Calcium (Lipitor*) 40 mg PO 2100 [facility] Last Admin: 01/16/19 20:01 Dose: 40 mg Cyanocobalamin (Vitamin B12 Tab*) 1,000 mcg PO DAILY [facility] Enoxaparin Sodium (Lovenox(*)) 30 mg SUBCUT Q24H [facility] Last Admin: 01/17/19 12:08 Dose: 30 mg Sodium Chloride (Ns 0.9% 1000 Ml) 1,000 mls @ 75 mls/hr IV PER RATE [facility] Last Admin: 01/17/19 05:06 Dose: 75 mls/hr Latanoprost (Xalatan 0.005%*) 1 drop BOTH EYES BEDTIME [facility]; Protocol Last Admin: 01/16/19 20:00 Dose: 1 drop Ondansetron HCl (Zofran Inj*) 4 mg IV Q6H PRN PRN Reason: NAUSEA Tamsulosin HCl (Flomax Cap*) 0.4 mg PO BEDTIME [facility] Last Admin: 01/16/19 20:01 Dose: 0.4 mg Vital Signs 01/16/19 01/16/19 01/16/19 15:15 19:00 19:12 Temperature 97.2 F 98.8 F Pulse Rate 94 94 Respiratory 18 18 16 Rate Blood Pressure 133/68 145/93 (mmHg) O2 Sat by Pulse 100 99 Oximetry 01/16/19 01/16/19 01/16/19 20:00 23:37 23:50 Temperature 98.5 F Pulse Rate 90 72 Respiratory 18 20 16 Rate Blood Pressure 149/91 (mmHg) O2 Sat by Pulse 98 Oximetry 01/17/19 01/17/19 01/17/19 00:00 04:25 05:15 Temperature 97.6 F Pulse Rate 84 Respiratory 20 16 16 Rate Blood Pressure 138/81 (mmHg) O2 Sat by Pulse 97 Oximetry 01/17/19 01/17/19 07:15 08:00 Temperature 98.9 F Pulse Rate 81 Respiratory 16 18 Rate Blood Pressure 134/86 (mmHg) O2 Sat by Pulse 99 Oximetry Intake and Output Last 24 Hours 01/15/19 01/16/19 01/17/19 01/18/19 06:59 06:59 06:59 06:59 Intake Total 0 2854 960 Output Total 0 8090 700 Balance 0 -5236 260 Weight 185 lb 8 oz 185 lb Intake: IV Fluids 934 NS (0.9%) 934 Oral 0 1920 960 Output: Urine 0 [place] 8090 700 Oxygen Devices in Use Now: None Neurology Exam: General: Well nourished, well developed, and in no acute distress HEENT: Normocephelic/atraumatic, sclera anicteric, mucous membranes moist Neck: Supple Chest: Clear to auscultation bilaterally Cardiovascular: Regular rate and rhythm without murmurs, rubs, gallops Extremities: No clubbing, cyanosis, or edema Neurological Findings: Awake, alert, and oriented to person, place, and time. NIHSS 3 (facial asymmetry, left homonomous hemianopsia) Speech: fluent without dysarthria, repetition intact Cranial Nerve: PERRL, left homonymous hemianopsia. Mild left facial droop. Motor: s/s throughout, proximal and distal extremities x4 tone/bulk normal Sensation: intact to LT/PP bilaterally upper and lower extremities Deep Tendon Reflex: 2+ symmetric in the upper/lower extremities, Babinski - down going Finger to nose, rapid alternating movements intact without tremor, no dysdiadochokinesia Gait: n/a Result Diagrams: 01/17/19 04:59 01/17/19 04:59 Assessment/Plan 1. 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 - While I agree he needs to be on anticoagulation therapy sooner than later, the stroke size is large and he has slightly increase in the area of petechial hemorrhage within the infarcted area on the MRI. Therefore, I recommend holding off for at least 10 days before starting renally dosed Eliquis (2.5 mg PO twice daily). - Continue aspirin 81 mg daily. - Repeat CT head without contrast on 01/25/2019. If CT head shows no progression or enlargement of the stroke, then start the anticoagulation therapy. I would also continue the aspirin 81 mg daily since the Eliquis will be the age and renally adjusted dose. - The patient was NOT on statin therapy at home. His LDL is 54 and total cholestrol is 135. In the setting of petechial hemorrhage, I don't recommend aggressive high intensity statin therapy as there are reports of worsening hemorrhage associated with statin therapy. This topic is controversial. The stroke occurred due to atrial fibrillation and not related to an LVO. Therefore , I don't recommend statin therapy in this case. 2. Vitamin B12 deficiency- started oral cyanocobalamin 1,000 mcg PO daily and one time dose of 1,000 mcg IM daily. 3. Atrial fibrillation- restart anticoagulation therapy within 10 days. 4. Lung nodule: IR consult pending. 5. Bilateral hydronephrosis: pending nephrology consult. Defer to the primary team. We will arrange an outpatient follow-up.
[2019-01-17] MEDS: Cyanocobalamin TAB* 500 MCG PO SCH (15:41)
--- NOTE | 2019-01-17 19:08 | CONS ---
CONSULTATION NOTE: DATE OF CONSULTATION: 01/17/19 LOCATION: Mr. Rosas is in room 442. HISTORY OF PRESENT ILLNESS: I was asked by the Hospitalist Service to see this 83-year-old white male because of large urinary retention, bilateral hydronephrosis and decreased renal function. For the last several months, Mr. Rosas has noted progressive voiding symptoms with slow stream, hesitancy, frequency, and nocturia. About 3 to 4 months ago, he started having episodes of strong urgency and urinary incontinence. He became significantly incontinent at night and has been using 2 to 3 diapers during his sleep and they were soaked when he changed them. During the daytime , he has been voiding about every hour and with a slow stream and relatively small voidings. He denies any episodes of gross hematuria or urinary tract infections. He did not have any sensation of suprapubic fullness or pain. The patient denies any past history of diseases. No past history of renal calculi gross hematuria or urinary tract infections. The patient was admitted 2 days ago because of acute decreased vision. On his work-up, he was noted to have a subacute large right posterior cerebral artery embolic stroke. This was felt to be secondary to atrial fibrillation for which she has not been on anticoagulation. On his admission, he also had a CT of the abdomen and pelvis which showed bilateral moderate hydroureteronephrosis and a very distended bladder. His serum creatinine on admission was 1.7. The patient had a [place] catheter placed yesterday and 2,300 cc of clear urine drained. He did not have postobstructive diuresis. His serum creatinine is still elevated at 1.8 today. His urine has been bloody, however, this was associated with starting anticoagulation with Eliquis. Of note, the patient did not have any hematuria by history or on presentation and when the [place] catheter was initially placed. The patient is being managed for the atrial fibrillation and stroke. Surprisingly, he does not have many deficits as expected considering the size of his stroke. On physical exam, he is lying comfortably in bed. He is answering all the questions appropriately. He has no CVA tenderness. There is no suprapubic distention. He has a [place] catheter draining dark bloody urine. External genitalia are normal. Rectal exam shows a moderately enlarged but nonsuspicious prostate. IMPRESSION: 1. 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 The large urinary retention of 2,300 cc can easily explain his bilateral hydroureteronephrosis and elevated serum creatinine. 2. Gross hematuria is secondary to the decompression of the bladder distention with rupture of the small submucosal vessels in the bladders, made worse by anticoagulation. This hematuria should stop spontaneously and not a contraindication to anticoagulation. 3. I expect his hydronephrosis and the serum creatinine to both improve as the bladder drainage is maintained. RECOMMENDATION: My recommendation at this time is to keep him on catheter drainage. Whenever, he is ready to be discharged home, he should go home on the [place] catheter and starting him on tamsulosin 0.4 mg daily. I will see him in my office and he will have a work-up with cystoscopy and urodynamic studies to decide on the definitive treatment of the retention. The patient should be given the option of intermittent self catheterization versus chronic catheter drainage depending what he feels more comfortable with. [id number]/CPS #: [id number] MAIRA
[2019-01-17] MEDS: Latanoprost 0.005%* 2.5 ml BTL BOTH EYES SCH (20:03)
[2019-01-17] MEDS: Tamsulosin CAP* 0.4 MG PO SCH (20:03)
[2019-01-18] MEDS ORDERED: Morphine INJ* 2 MG/ML 1 ML SYRINGE (TWO MG - NEW SYRINGE VERSION) IV ONE (05:50)
[2019-01-18 06:24] LABS: ABS Eosinophils 0.2 10^3/ul (0-0.6); ABS Lymphocytes 0.8 10^3/ul (1.0-4.8); ABS Monocytes 0.7 10^3/ul (0-0.8); ABS Neutrophils 3.1 10^3/ul (1.5-7.7); Hematocrit 33 % (42-52); Hemoglobin 11.1 g/dL (14.0-18.0); Lymphocyte % 16.6 %; Mean Corpuscular HGB Conc 34 g/dL (31-36); Mean Corpuscular Hemoglobin 36 pg (27-31); Mean Corpuscular Volume 105 fL (80-94); Nucleated Red Blood Cells % 0.1; Platelet Count 178 10^3/uL (150-450); Red Blood Count 3.11 10^6 /uL (4.18-5.48); Red Cell Distribution Width 12 % (10-15); White Blood Count 4.9 10^3/uL (3.5-10.8)
[2019-01-18 06:50] LABS: Calcium 8.3 mg/dL (8.6-10.3)
[2019-01-18 06:55] LABS: BUN/Creatinine Ratio 15.2 (8-20); EGFR African American 48.9 (>60); EGFR Non-African American 40.4 (>60)
[2019-01-18] MEDS ORDERED: Aspirin EC TAB* 81 MG TAB.EC PO SCH (09:00)
[2019-01-18] MEDS: Cyanocobalamin TAB* 500 MCG PO SCH (09:27)
[2019-01-18] MEDS: Acetaminophen TAB* 325 MG PO PRN (09:31)
[2019-01-18] MEDS ORDERED: Aspirin EC TAB* 81 MG TAB.EC PO ONE (10:59)
[2019-01-18] MEDS ORDERED: Cyanocobalamin INJ * 1,000 MCG/ML VIAL 1 ML VIAL IM ONE (12:37)
--- NOTE | 2019-01-18 12:39 | PN ---
Subjective Date of Service: 01/18/19 Length of Stay: 3 Days Neurology is following for the evaluation of stroke. Interval History: He is sitting in a chair today in no distress. He had headaches overnight because he laid flat in bed. His headache got better when he sat up and after he received morphine. He denied any worsening of vision. He still has significant left hemianopsia. He denied any focal weakness or paresthesia. 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 There is no herniation. There is relative sparing of the right thalamus. intracranial atherosclerotic disease with no evidence of LVO. Mild chronic small vessel ischemic disease. TTE: no PFO. EF: 55-60%. Review of Systems: Denied CP, SOB, or palpitations. Objective Active Medications: Acetaminophen (Tylenol Tab*) 650 mg PO Q6H PRN PRN Reason: MILD PAIN or TEMP > 100.4 Last Admin: 01/18/19 09:31 Dose: 650 mg Cyanocobalamin (Vitamin B12 Tab*) 1,000 mcg PO DAILY [facility] Last Admin: 01/18/19 09:27 Dose: 1,000 mcg Enoxaparin Sodium (Lovenox(*)) 30 mg SUBCUT Q24H [facility] Last Admin: 01/17/19 12:08 Dose: 30 mg Latanoprost (Xalatan 0.005%*) 1 drop BOTH EYES BEDTIME [facility]; Protocol Last Admin: 01/17/19 20:03 Dose: 1 drop Ondansetron HCl (Zofran Inj*) 4 mg IV Q6H PRN PRN Reason: NAUSEA Tamsulosin HCl (Flomax Cap*) 0.4 mg PO BEDTIME [facility] Last Admin: 01/17/19 20:03 Dose: 0.4 mg Vital Signs 01/17/19 01/17/19 01/17/19 15:15 19:32 20:00 Temperature 98.1 F 98.4 F Pulse Rate 83 84 Respiratory 17 16 16 Rate Blood Pressure 142/85 122/70 (mmHg) O2 Sat by Pulse 100 99 Oximetry 01/18/19 01/18/19 01/18/19 00:00 00:06 03:40 Temperature 98.7 F 97.8 F Pulse Rate 89 81 Respiratory 16 16 16 Rate Blood Pressure 139/67 139/73 (mmHg) O2 Sat by Pulse 98 99 Oximetry 01/18/19 01/18/19 01/18/19 06:03 08:00 08:04 Temperature 98 F Pulse Rate 76 Respiratory 20 16 20 Rate Blood Pressure 137/78 (mmHg) O2 Sat by Pulse 100 Oximetry 01/18/19 09:27 Temperature Pulse Rate Respiratory 18 Rate Blood Pressure (mmHg) O2 Sat by Pulse Oximetry Intake and Output Last 24 Hours 01/16/19 01/17/19 01/18/19 01/19/19 06:59 06:59 06:59 06:59 Intake Total 0 2854 4319 720 Output Total 0 8090 4000 Balance 0 -5236 319 720 Weight 185 lb 8 oz 185 lb Intake: IV Fluids 934 2639 NS (0.9%) 934 2639 Oral 0 1920 1680 720 Output: Urine 0 [place] 8090 4000 Other: Estimated Stool Amount Large Oxygen Devices in Use Now: None Neurology Exam: General: Well nourished, well developed, and in no acute distress HEENT: Normocephelic/atraumatic, sclera anicteric, mucous membranes moist Extremities: No clubbing, cyanosis, or edema Neurological Findings: Awake, alert, and oriented to person, place, and time. NIHSS 3 (facial asymmetry, left homonomous hemianopsia) Speech: fluent without dysarthria, repetition intact Cranial Nerve: PERRL, left homonymous hemianopsia. Mild left facial droop. Motor: s/s throughout, proximal and distal extremities x4 tone/bulk normal Sensation: intact to LT/PP bilaterally upper and lower extremities Deep Tendon Reflex: 2+ symmetric in the upper/lower extremities, Babinski - down going Finger to nose, rapid alternating movements intact without tremor, no dysdiadochokinesia Gait: n/a Result Diagrams: 01/18/19 05:57 01/18/19 05:57 Assessment/Plan 1. Acute-subacute large right SECRETARY TO [employer] vascular territory embolic stroke due to atrial fibrillation- - The patient was not on anticoagulation therapy before the stroke that took place on 01/15/2019. - While I agree he needs to be on anticoagulation therapy sooner than later, the stroke size is large and he has slightly increase petechial hemorrhage within the infarcted area on the MRI. Therefore, I recommend holding off anticoagulation therapy for at least 10 days before starting renally dosed Eliquis (2.5 mg PO twice daily). - Continue aspirin 81 mg daily. - Repeat CT head without contrast on 01/25/2019. If CT head shows no progression or enlargement of the stroke, then start the anticoagulation therapy. I would also continue the aspirin 81 mg daily since the Eliquis will be the age and renally adjusted dose. - The patient was NOT on statin therapy at home. His LDL is 54 and total cholesterol is 135. In the setting of petechial hemorrhage, I don't recommend aggressive high intensity statin therapy as there are reports of worsening hemorrhage associated with statins. This topic is controversial. The stroke occurred due to atrial fibrillation and not related to an LVO. Therefore, I don 't recommend statin therapy in this case. 2. Vitamin B12 deficiency- started oral cyanocobalamin 1,000 mcg PO daily and repeat another dose of IM today. 3. Atrial fibrillation- restart anticoagulation therapy within 10 days. 4. Lung nodule: work-up deferred to the primary team. 5. Bilateral hydronephrosis and hematuria: We will arrange an outpatient follow-up. I will sign off.
[2019-01-18] MEDS: Enoxaparin(*) 30 MG/0.3 ML SYR SUBCUT SCH (13:08)
[2019-01-18 14:15] VITALS: BP 143/76
--- NOTE | 2019-01-18 14:38 | DS ---
CC: Dr. Ricardo Najera; Dr. Barcenas; Dr. Bruce * DISCHARGE SUMMARY: DATE OF ADMISSION: 01/15/19 DATE OF DISCHARGE: 01/18/19 PRIMARY CARE PROVIDER: Ricardo Najera DO. OTHER PROVIDERS: 1. Dr. Barcenas. 2. Dr. Bruce. ATTENDING PHYSICIAN: Nirav Shell MD * (dictated by RAMIREZ Wallace). PRIMARY DIAGNOSES: 1. Right posterior cerebrovascular accident. 2. Lung nodule. 3. Acute kidney injury. 4. Bilateral hydronephrosis. 5. Benign prostatic hyperplasia. 6. Hematuria. SECONDARY DIAGNOSES: 1. Atrial fibrillation, not on anticoagulation. 2. Glaucoma. STUDIES WHILE IN THE HOSPITAL: 1. Transthoracic echocardiogram. Summary: LV systolic function lower limits of normal. EF 50% to 55%. Wall motion normal. No regional wall motion abnormalities. RV systolic function normal. Atrial septum. A PFO is not demonstrated by color Doppler. Bubble study was nondiagnostic due to the patient's IV in technique. [id number] MV. Trace AR. [id number] TR. No significant pericardial effusion. Pulmonary artery systolic pressure mildly to moderately increased. 2. Brain CT. Impression: Hypodense area in the right occipital lobe with mass effect on the atria of the right lateral ventricle. There is a small focus of hyperdensity with the hypodense area measuring up to 0.6 cm, which may represent hemorrhage within the stroke. 3. CT chest, abdomen, and pelvis. Impression: There is a left upper lobe soft tissue mass consistent with neoplastic process measuring up to 2.8 x 1.9 cm , calcified granuloma is also noted in the left upper lobe. No mediastinal or hilar adenopathy is noted. There is marked hydronephrosis of both kidneys with markedly distended urinary bladder and enlarged prostate. 4. MRI brain. Impression: The subacute right [employer] territory infarct is demonstrated with petechial blood products and only mild local mass effect. There is no herniation. There is relative sparing of the right thalamus. Intracranial atherosclerotic disease with no acute occlusive disease, significant stenosis or aneurysm. Mild chronic small vessel ischemic disease is likely. CONSULTATIONS WHILE IN THE HOSPITAL: 1. Neurology consultation. Impression is that of right posterior cerebral artery infarction, which appears to involve the entire posterior cerebral artery. There is some petechial hemorrhage and some mass effect compared to yesterday, most likely mechanism cardioembolic. In regards to anticoagulation, I would hold off until further imaging tomorrow. Eliquis dose according to renal function, recommended inpatient with cardioembolic stroke. If MRI does not suggest significant progression of petechial hemorrhage, probably start anticoagulation. 2. Pulmonology consult. An 83-year-old male smoker with occipital CVA with possible hemorrhagic component; history of AFib, not on anticoagulation; incidental finding of lung mass about 2 cm in left upper lobe. Given smoking history and age, concern for malignancy. Given size and location, it is more amenable to CT-guided biopsy. Recommend contacting IR regarding CT-guided biopsy. 3. Urology. 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 Large urinary retention of 2300 cc can easily explain bilateral hydronephrosis and elevated serum creatinine. Gross hematuria secondary to release of bladder distention with rupture of small submucosal vessels in bladder, made worse by anticoagulation. Hematuria should stop spontaneously and not a contraindication to anticoagulation. I expect hydronephrosis and serum creatinine to improve as bladder drainage maintained. Recommendation is keep him on catheter drainage. He should be discharged home on Obregon catheter. Start tamsulosin 0.4 mg daily. Followup outpatient with Urology for cystoscopy, urodynamic studies to decide definitive treatment of retention. DISCHARGE MEDICATIONS: Home medications: 1. Bimatoprost 0.01% ophthalmic 1 drop to both eyes in evening. 2. Multivitamin/minerals 1 tab p.o. daily. New home medications: 1. Aspirin 81 mg p.o. daily x10 days, then transition to apixaban b.i.d. as long as CT from 01/25/19 shows no progression or enlargement of stroke 2. Cyanocobalamin 1000 mcg p.o. daily. 3. Tamsulosin 0.4 mg p.o. at bedtime. HISTORY OF PRESENT ILLNESS/HOSPITAL COURSE: Mr. Rosas is an 83-year-old male with a past medical history of atrial fibrillation, not on anticoagulation by recommendation of naturopathic physician, who presented to the emergency room at [facility] with complaints of visual deficit. For full and complete details, please see the history and physical dictated by Alyssa Nuñez MD, but in short , the patient presents with these symptoms. He notes that his deficits were in his peripheral vision. He described it as tunnel vision, which led to dizziness and the sensation that the room is spinning. He went to work, but then was brought to [facility]. CT was performed and showed a large infarct in the right posterior cerebral artery distribution. The patient was given aspirin 325 mg, transferred to [facility] and was admitted. Telestroke was consulted, and Dr. Kamara recommended against tPA or neurovascular intervention. Neurology was consulted and recommended repeat CT of the head as well as MRI. CT showed hypodense area in right occipital lobe with mass effect. MRI of the brain also showed subacute right [employer] territory infarct with petechial blood product and only mild local mass effect. Neurology continued to follow the patient. Transthoracic echocardiogram was performed and revealed no PFO by color Doppler. Due to the patient's past medical history of atrial fibrillation, not on anticoagulation, it is likely that the cause of the stroke is cardioembolic. Recommendations were made to continue aspirin 81 mg daily. He will then have a repeat head CT without contrast on 01/25/19. If the CT of the head shows no progression or enlargement of the stroke, anticoagulation therapy may be started. Recommendation currently is Eliquis 2.5 mg p.o. b.i.d. due to the patient's age and creatinine. Recommendation is to recheck creatinine prior to starting Eliquis as his elevated creatinine is likely due to JESUS and will likely resolve. Neurology also recommended cyanocobalamin 1000 mcg daily. The patient was noted to have some abnormalities on his CAT scan of an incidental finding of a lung nodule in the left upper lobe measuring 2.8 x 1.9 cm. Pulmonology was consulted and recommended CT-guided biopsy of the nodule for further evaluation. Due to the patient's current acute stroke and need for anticoagulation with aspirin followed by apixaban, it is best to delay this some. Interventional Radiology recommended outpatient CT-guided lung biopsy. This should be followed by his primary care provider. The patient was noted to have bilateral hydronephrosis, distended urinary bladder, and enlarged prostate on CT scan as well. A Obregon was placed with output of 2300 cc of urine. The patient was also noted to have hematuria, which he denies any past history of hematuria. Urology was consulted and recommended tamsulosin, continuation of Obregon, and outpatient followup with Dr. Bruce for a cystoscope and urodynamic studies. The patient is agreeable to maintaining Obregon catheter. Likely the patient had hydronephrosis and acute kidney injury as a result of possible enlarged prostate. The Obregon catheter should resolve both the elevated creatinine and the hydronephrosis. His hematuria is likely due to bladder distention release and rupture of small submucosal vessels in the bladder. This was worsened by the fact that he is on aspirin. This should resolve spontaneously and is not a contraindication to anticoagulation per Urology recommendations. The patient will follow up with Dr. Bruce outpatient for further instructions on catheter. At the time of discharge, the patient continues to have complaints of left hemianopia in both eyes, although he notes that there is some improvement in his peripheral vision. He notes that he has been reading some without irritation, although he does note he had a headache earlier today, which is now resolved. He denies dysphagia, dysarthria, muscle weakness, dizziness, lightheadedness, blurred vision. His only complaint is loss of his left peripheral vision. Mr. Rosas is stable for discharge to [facility]. PHYSICAL EXAMINATION: Vital signs: Temperature 98.0 temporal, heart rate 76, respiratory rate 20, oxygen saturation 100% on room air, blood pressure 137/78. General: Mr. Rosas is an average weight, pleasant, older white male who is sitting up in his chair with his feet at the ground. He appears to be in no acute distress. He is pleasant and cooperative. There is no slurred speech. HEENT: PERRL, EOMI, although the patient has difficulty following in the left periphery due to vision loss in this field. He has left homonymous hemianopia that maintains. Hearing is grossly intact. Oral mucosa is moist. Pharynx is clear. Palate elevates symmetrically. Tongue is at midline. Cardiovascular: Irregular rate and rhythm with S1, S2 present. There are no murmurs, rubs, clicks, or gallops. There is no JVD. There is no peripheral edema. Pulmonary : Symmetrical chest expansion without use of accessory muscles. Lungs: Clear to auscultation bilaterally without rhonchi, wheezes, or rales. Abdomen: Flat , nondistended. Bowel sounds in all quadrants. There is mild suprapubic tenderness to palpation. Neuro: The patient is awake. He is alert and oriented x3. 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 Cranial nerves intact except for left homonymous hemianopia and some difficulty following finger with eyes in the left peripheral vision field. DISCHARGE PLAN: Mr. Rosas is stable for discharge. CONDITION: Good. DISPOSITION: [facility] bed. ACTIVITY: As tolerated. DIET: Heart healthy. MEDICATIONS: 1. Continue aspirin 81 mg p.o. daily. 2. Continue tamsulosin 0.4 mg p.o. daily. 3. Start apixaban 2.5 mg p.o. b.i.d., only if CT head without contrast on 01/25 shows no enlargement or progression of stroke. This medication is age and renally adjusted. Please check creatinine prior to beginning this medication to see if the patient meets criteria for full dose apixaban after resolution of acute kidney injury. EDUCATION: 1. Repeat head CT without contrast on 01/25/19 to assess for stroke progression or enlargement. At that time, if there is no progression or enlargement, please start apixaban. 2. Follow up with primary care provider in 4 to 7 days. Discussed scheduling lung biopsy due to lung nodule findings on CT chest. 3. Follow up with Dr. Bruce, Urology, in 4 to 7 days. Discuss further management of Obregon catheter, cystoscopy, urodynamic studies. 4. Follow up with Dr. Barcenas, Neurology, as directed. Office will call with appointment, date and time. 5. Follow up with Ophthalmology in 1 to 2 weeks. 6. Return to the ER or nearest hospital if you experience any worsening of symptoms, chest pain or discomfort, dizziness, lightheadedness, loss of consciousness, vision changes, or worsening muscle weakness, facial asymmetry, high fevers, chills, night sweats, or any other worrisome signs or symptoms. This is a summarized report of a complex medical history and hospital stay. For further details, please see the entire medical record. TIME SPENT: Approximately 40 minutes were spent on this discharge, greater than half that time was spent [id number] with the patient, discussing discharge plans and instructions. RAMIREZ GARCIA [id number]/[facility] #: [id number] MAIRA
== END 2019-01-18 17:06 | disposition swing bed (61) | DRG 65 ==
LOC: ED 14:08 → MEDTELE 16:29
PROVIDERS: ADMIT Internal Medicine; ATTEND Internal Medicine
DX: I63.531 Cerebral infarction due to unspecified occlusion or stenosis of right posterior cerebral artery (principal); N13.30 Unspecified hydronephrosis; N13.8 Other obstructive and reflux uropathy; N17.9 Acute kidney failure, unspecified; I48.91 Unspecified atrial fibrillation; H91.93 Unspecified hearing loss, bilateral; Z96.642 Presence of left artificial hip joint; R29.700 NIHSS score 0; H40.9 Unspecified glaucoma; H53.9 Unspecified visual disturbance; R20.0 Anesthesia of skin; R32 Unspecified urinary incontinence; R91.8 Other nonspecific abnormal finding of lung field; F17.290 Nicotine dependence, other tobacco product, uncomplicated; R33.8 Other retention of urine; N40.1 Benign prostatic hyperplasia with lower urinary tract symptoms; H53.462 Homonymous bilateral field defects, left side; R29.810 Facial weakness; I10 Essential (primary) hypertension; E53.8 Deficiency of other specified B group vitamins; I08.2 Rheumatic disorders of both aortic and tricuspid valves; R31.0 Gross hematuria; Z98.49 Cataract extraction status, unspecified eye; Z97.4 Presence of external hearing-aid; Z82.61 Family history of arthritis; Z72.89 Other problems related to lifestyle
CPT/HCPCS: 36415; 70450; 70544; 70551; 71250; 74176; 80048; 80053; 80061; 81003; 82607; 83036; 83735; 84100; 84153; 85025; 85610; 85730; 93005; 93306; 96372; 96374; 99284; A9270-GY; G8978-GP-CJ; G8979-GP-CI; G8987-GO-CK; G8988-GO-CI; J1650; J2270; J2405; J3420

== ENCOUNTER 2019-09-27 07:32 | Observation (INO) ==
[2019-09-27 09:07] LABS: Hematocrit 39 % (42-52); Hemoglobin 13.6 g/dL (14.0-18.0); Mean Corpuscular HGB Conc 35 g/dL (31-36); Mean Corpuscular Hemoglobin 37 pg (27-31); Mean Corpuscular Volume 105 fL (80-94); Mean Platelet Volume 6.5 fL (7.4-10.4); Platelet Count 182 10^3/uL (150-450); Red Blood Count 3.68 10^6 /uL (4.18-5.48); Red Cell Distribution Width 13 % (10-15); White Blood Count 5.7 10^3/uL (3.5-10.8)
[2019-09-27 09:24] LABS: Calcium 9.3 mg/dL (8.6-10.3); EGFR African American 91.6 (>60); EGFR Non-African American 75.7 (>60); Magnesium 1.9 mg/dL (1.9-2.7); Potassium 4.2 mmol/L (3.5-5.0)
[2019-09-27] MEDS ORDERED: Cyanocobalamin INJ 1,000 MCG/ML VIAL 1 ML VIAL IM ONE (10:17)
[2019-09-27] MEDS: NS 0.9% 1000 ml BAG 1,000 ML IV SCH ×2 (10:42→19:35)
[2019-09-27 17:35] LABS: Urine Appearance Clear; Urine Bacteria 2+ (Absent); Urine Bilirubin Negative (Negative); Urine Blood 2+ (Negative); Urine Glucose Negative (Negative); Urine Ketones Negative (Negative); Urine Nitrite Negative (Negative); Urine Protein 2+(100 mg/dL) (Negative); Urine Red Blood Cell 3+(>10/hpf) (Absent); Urine Specific Gravity 1.003 (1.010-1.030); Urine Urobilinogen Negative (Negative); Urine White Blood Cell 3+(>20/hpf) (Absent)
[2019-09-27 17:36] LABS: Urine Color Red
[2019-09-27] MEDS ORDERED: BIMATOPROST BOTH EYES SCH (21:00)
[2019-09-28] MEDS: NS 0.9% 1000 ml BAG 1,000 ML IV SCH (03:45)
[2019-09-28] MEDS ORDERED: Cyanocobalamin INJ 1,000 MCG/ML VIAL 1 ML VIAL IM ONE (08:00)
[2019-09-28] MEDS ORDERED: Vitamin THERAPEUTIC TAB PO SCH (09:00)
[2019-09-28 11:40] VITALS: BP 142/80
== END 2019-09-28 14:30 | disposition home or self-care (01) ==
LOC: SSU 08:39 → INTOOBSV 08:39
PROVIDERS: ADMIT Urology; ATTEND Urology